=== PATIENT | female | born 1960 | race Caucasian/White ===

== ENCOUNTER 2017-02-04 21:10 | Emergency (ER) | payer BC ==
[~2017-02-04 21:10] MED LIST: APIDRA SOL100 UNIT/1 SQ; CRESTOR40 MG PO; ECOTRIN81 MG PO; EFFIENT10 MG PO; FERROUS SULFAT325 MG PO; ISORDIL TAB 2020 MG PO; JANUVIA100 MG PO; METFORMIN HCL500 MG PO; METOPROLOL TART25 MG PO; NITROSTAT0.4 MG SL; PANTOPRAZOLE SO40 MG PO; PROAIR HFA8.5 GM INH; RANEXA500 MG PO; TROUJEO SC; VESICARE10 MG PO; VITAMIN B-121000 MC3 PO; VITAMIN D50000 UNIT PO
[2017-02-05 01:32] LABS: HEMOGLOBIN 10.4 gm/dl (12.3-15.3); RED BLOOD COUNT 3.85 M/UL (4.00-5.10); WHITE BLOOD COUNT 6.3 K/UL (4.5-11.0)
[2017-02-05 01:56] LABS: BUN/CREATININE RATIO 23 (0-10)
== END 2017-02-05 04:20 | disposition home or self-care (01) ==
LOC: ER1 21:10
PROVIDERS: Family Medicine
DX: R22.43 Localized swelling, mass and lump, lower limb, bilateral (principal); R07.89 Other chest pain; R06.02 Shortness of breath; I25.10 Atherosclerotic heart disease of native coronary artery without angina pectoris; E11.9 Type 2 diabetes mellitus without complications; Z88.8 Allergy status to other drugs, medicaments and biological substances; Z79.82 Long term (current) use of aspirin; Z79.899 Other long term (current) drug therapy; Z79.84 Long term (current) use of oral hypoglycemic drugs
CPT/HCPCS: 36415; 71010; 73630; 80053; 82550; 82553; 83874; 83880; 84484; 85025; 99285

== ENCOUNTER 2021-04-14 09:19 | Emergency (ER) | payer OTHER ==
[~2021-04-14 09:19] MED LIST changes: +ASPIR 8181 MG PO; +COQ10 PO; +CRESTOR20 MG PO; +CRESTOR5 MG PO; +FISH OIL 1,0001 EAC4 PO; +FLONASE 0.05% N16 GM; +GLUCOPHAGE500 MG PO; +HUMALOG SQ; +HUMALOG100 UNIT/3 SQ; +IMDUR ER TAB 6060 MG PO; +ISORDIL TAB 3030 MG PO; +ISOSORBIDE MONO10 MG PO; +LISINOPRIL5 MG PO; +LOPRESSOR 25 MG25 MG PO; +LOPRESSOR50 MG PO; +MACRODANTIN100 MG PO; +OS-CAL 500+D31 EACH PO; +PREDNISONE 50 M50 MG PO; +PROTONIX40 MG PO; +PYRIDIUM200 MG PO; +RANEXA1000 MG PO; +REQUIP0.25 MG PO; +ROPINIROLE HC0.25 MG PO; +SINGULAIR10 MG PO; +TOUJEO MAX300 UNIT/1 SQ; +TOVIAZ4 MG PO; +VENTOLIN HFA 66.7 GM INH; +ZOFRAN 4 MG TAB4 MG PO; +ZOFRAN4 MG PO
[2021-04-14 12:52] LABS: HEMOGLOBIN 12.4 gm/dl (12.3-15.3); RED BLOOD COUNT 4.45 M/UL (4.00-5.10)
[2021-04-14 13:26] LABS: BUN/CREATININE RATIO 19 (0-10)
== END 2021-04-14 15:48 | disposition home or self-care (01) ==
LOC: ER1 09:19
PROVIDERS: Physician Assistant
DX: R07.89 Other chest pain (principal); R06.02 Shortness of breath; R42 Dizziness and giddiness; E11.9 Type 2 diabetes mellitus without complications; E78.5 Hyperlipidemia, unspecified; I11.9 Hypertensive heart disease without heart failure; Z90.49 Acquired absence of other specified parts of digestive tract; Z87.891 Personal history of nicotine dependence; Z88.8 Allergy status to other drugs, medicaments and biological substances; Z95.2 Presence of prosthetic heart valve
CPT/HCPCS: 71045; 80053; 82550; 82553; 83874; 84484; 85025; 93005; 99285

== ENCOUNTER 2021-05-24 13:22 | Emergency (ER) | payer OTHER ==
[2021-05-24 15:13] LABS: HEMOGLOBIN 12.1 gm/dl (12.3-15.3); RED BLOOD COUNT 4.3 M/UL (4.00-5.10); WHITE BLOOD COUNT 6.3 K/UL (4.5-11.0)
[2021-05-24 15:35] LABS: BUN/CREATININE RATIO 18 (0-10)
== END 2021-05-24 16:10 | disposition home or self-care (01) ==
LOC: ER1 13:22
PROVIDERS: Physician Assistant Medical
DX: R22.42 Localized swelling, mass and lump, left lower limb (principal); J44.9 Chronic obstructive pulmonary disease, unspecified; I11.9 Hypertensive heart disease without heart failure; E11.9 Type 2 diabetes mellitus without complications; Z79.4 Long term (current) use of insulin; E78.5 Hyperlipidemia, unspecified; Z95.5 Presence of coronary angioplasty implant and graft; Z90.49 Acquired absence of other specified parts of digestive tract; Z88.8 Allergy status to other drugs, medicaments and biological substances
CPT/HCPCS: 71046; 80053; 85025; 85379; 85610; 85730; 94664; 94760; 99284

== ENCOUNTER 2021-11-28 11:42 | Emergency (ER) | payer OTHER ==
[2021-11-28 13:44] LABS: HEMOGLOBIN 12.9 gm/dl (12.3-15.3); RED BLOOD COUNT 4.63 M/UL (4.00-5.10); WHITE BLOOD COUNT 10.2 K/UL (4.5-11.0)
[2021-11-28 14:08] LABS: BUN/CREATININE RATIO 20 (0-10)
== END 2021-11-28 15:15 | disposition home or self-care (01) ==
LOC: ER1 11:42
PROVIDERS: Physician Assistant
DX: J06.9 Acute upper respiratory infection, unspecified (principal); I11.9 Hypertensive heart disease without heart failure; E11.9 Type 2 diabetes mellitus without complications; E78.5 Hyperlipidemia, unspecified; Z88.8 Allergy status to other drugs, medicaments and biological substances; Z20.822 Contact with and (suspected) exposure to COVID-19
CPT/HCPCS: 71045; 80053; 82550; 82553; 83874; 84484; 85025; 99285; U0002

== ENCOUNTER 2021-12-20 17:22 | Emergency (ER) | payer OTHER ==
[2021-12-20 18:23] LABS: HEMOGLOBIN 13.6 gm/dl (12.3-15.3); RED BLOOD COUNT 4.77 M/UL (4.00-5.10); WHITE BLOOD COUNT 12.7 K/UL (4.5-11.0)
[2021-12-20 18:55] LABS: BUN/CREATININE RATIO 15 (0-10)
[2021-12-20] MEDS ORDERED: ZOFRAN 4 MG TAB4 MG PO (20:09)
[2021-12-20] MEDS ORDERED: OMNICEF 300 MG300 MG PO (20:10)
[2021-12-22] MEDS ORDERED: MECLIZINE HCL25 MG PO (21:49)
== END 2021-12-20 22:00 | disposition home or self-care (01) ==
LOC: ER1 17:22
PROVIDERS: Emergency Medicine
DX: G43.909 Migraine, unspecified, not intractable, without status migrainosus (principal); N39.0 Urinary tract infection, site not specified; R11.2 Nausea with vomiting, unspecified; F17.210 Nicotine dependence, cigarettes, uncomplicated; I25.2 Old myocardial infarction; Z88.8 Allergy status to other drugs, medicaments and biological substances; Z20.822 Contact with and (suspected) exposure to COVID-19
CPT/HCPCS: 0240U; 70450; 71045; 80053; 81001; 82550; 82553; 83874; 84484; 85025; 87040; 93005; 96374; 96375; 99284; J0696; J2405; J2765

== ENCOUNTER 2022-03-11 12:43 | Inpatient (IN) | payer OTHER ==
[~2022-03-11] VITALS: Ht 165.1 cm; Wt 98.9 kg
[~2022-03-11 12:43] MED LIST changes: +ADVAIR 100-501 EACH INH; +ALBUTEROL2.5 MG/3 M INH; +AREDS II PO; +B-121000 MCG PO; +BASAGLAR K100 UNIT/1 SC; -CRESTOR5 MG PO; +DITROPAN 5 MG TA5 MG PO; +DOXYCYCLINE MO100 MG PO; -HUMALOG SQ; -LOPRESSOR50 MG PO; +MECLIZINE HCL25 MG PO; +METFORMIN HCL1000 MG PO; +OMNICEF 300 MG300 MG PO; +PREDNISONE20 MG PO; +PROTONIX 40 MG40 M1 PO; +RANOLAZINE ER1000 MG PO; +TAMIFLU 75 MG C75 MG PO; +TRULICITY0.75 MG/0. SQ
[2022-03-11 13:05] LABS: HEMOGLOBIN 12.4 gm/dl (12.3-15.3); RED BLOOD COUNT 4.38 M/UL (4.00-5.10); WHITE BLOOD COUNT 10.4 K/UL (4.5-11.0)
[2022-03-12 05:35] LABS: HEMOGLOBIN 12.7 gm/dl (12.3-15.3); RED BLOOD COUNT 4.5 M/UL (4.00-5.10)
[2022-03-12 05:58] LABS: BUN/CREATININE RATIO 22 (0-10)
[2022-03-12] MEDS ORDERED: HUMALOG100 UNIT/3 SQ (06:57)
[2022-03-12] MEDS ORDERED: CRESTOR20 MG PO (06:59)
[2022-03-12] MEDS ORDERED: METOPROLOL TARTRATE PO (07:04)
[2022-03-13 05:26] LABS: HEMOGLOBIN 11.4 gm/dl (12.3-15.3); RED BLOOD COUNT 4.09 M/UL (4.00-5.10)
[2022-03-13 05:28] LABS: WHITE BLOOD COUNT 8.7 K/UL (4.5-11.0)
[2022-03-13 05:57] LABS: BUN/CREATININE RATIO 16 (0-10)
[2022-03-13] MEDS ORDERED: PROAIR HFA8.5 GM INH (12:54)
[2022-03-13] MEDS ORDERED: TRULICITY1.5 MG/0.5 SQ (12:55)
[2022-03-14 05:02] LABS: HEMOGLOBIN 11.8 gm/dl (12.3-15.3); RED BLOOD COUNT 4.05 M/UL (4.00-5.10); WHITE BLOOD COUNT 9.3 K/UL (4.5-11.0)
[2022-03-14 05:22] LABS: BUN/CREATININE RATIO 19 (0-10)
[2022-03-15 02:56] LABS: RED BLOOD COUNT 4.33 M/UL (4.00-5.10)
[2022-03-15 02:58] LABS: WHITE BLOOD COUNT 13.4 K/UL (4.5-11.0)
[2022-03-15 03:47] LABS: BUN/CREATININE RATIO 26 (0-10)
[2022-03-15 16:11] LABS: ORGANISM ID Not indicated. (.); SPECIMEN SOURCE Urine (.); STREPTOCOCCUS PNEUMONIAE AG Negative (Negative)
[2022-03-16 03:16] LABS: HEMOGLOBIN 11.7 gm/dl (12.3-15.3); RED BLOOD COUNT 4.16 M/UL (4.00-5.10)
[2022-03-16 03:41] LABS: BUN/CREATININE RATIO 31 (0-10)
[2022-03-17 03:03] LABS: HEMOGLOBIN 11.8 gm/dl (12.3-15.3); RED BLOOD COUNT 4.16 M/UL (4.00-5.10); WHITE BLOOD COUNT 9.8 K/UL (4.5-11.0)
[2022-03-17 04:03] LABS: BUN/CREATININE RATIO 33 (0-10)
[2022-03-17] MEDS ORDERED: HUMIBID LA TAB600 MG PO (11:22)
[2022-03-17] MEDS ORDERED: HYDROCODON-ACE1 EAC4 PO (11:22)
[2022-03-17] MEDS ORDERED: IPRAT-ALBUT 0.5-3 ML NEB (11:22)
[2022-03-17] MEDS ORDERED: LOPRESSOR 25 MG25 MG PO (11:22)
[2022-03-17] MEDS ORDERED: BASAGLAR K100 UNIT/1 SC (11:24)
--- NOTE | 2022-03-17 13:14 | NUR ---
ROOM AIR SAT 86%.
== END 2022-03-17 18:15 | disposition home or self-care (01) | DRG 871 ==
LOC: ER1 12:43 → MED SURG 4 17:12 → CDU 17:12 → CCU 18:04 → MED SURG 4 03-14 18:36
PROVIDERS: Internal Medicine; Internal Medicine Critical Care Medicine; Physician Assistant; Student in an Organized Health Care Education/Training Program; ADMIT Internal Medicine
PROC: 5A12012 Performance of Cardiac Output, Single, Manual (ICD-10-PCS; principal; 2022-03-11)
PROC: 3E043XZ Introduction of Vasopressor into Central Vein, Percutaneous Approach (ICD-10-PCS; 2022-03-11)
PROC: 0BH17EZ Insertion of Endotracheal Airway into Trachea, Via Natural or Artificial Opening (ICD-10-PCS; 2022-03-11)
PROC: 5A1945Z Respiratory Ventilation, 24-96 Consecutive Hours (ICD-10-PCS; 2022-03-11)
PROC: 3E03329 Introduction of Other Anti-infective into Peripheral Vein, Percutaneous Approach (ICD-10-PCS; 2022-03-11)
PROC: B24BZZZ Ultrasonography of Heart with Aorta (ICD-10-PCS; 2022-03-12)
PROC: 0DH67UZ Insertion of Feeding Device into Stomach, Via Natural or Artificial Opening (ICD-10-PCS; 2022-03-13)
PROC: 5A0945A Assistance with Respiratory Ventilation, 24-96 Consecutive Hours, High Flow/Velocity Cannula (ICD-10-PCS; 2022-03-14)
DX: A41.9 Sepsis, unspecified organism (principal); R65.21 Severe sepsis with septic shock; I46.8 Cardiac arrest due to other underlying condition; Z20.822 Contact with and (suspected) exposure to COVID-19; J96.01 Acute respiratory failure with hypoxia; R57.0 Cardiogenic shock; J69.0 Pneumonitis due to inhalation of food and vomit; R00.0 Tachycardia, unspecified; T42.75XA Adverse effect of unspecified antiepileptic and sedative-hypnotic drugs, initial encounter; G47.33 Obstructive sleep apnea (adult) (pediatric); I10 Essential (primary) hypertension; R13.10 Dysphagia, unspecified; R53.81 Other malaise; E66.01 Morbid (severe) obesity due to excess calories; E83.42 Hypomagnesemia; E11.65 Type 2 diabetes mellitus with hyperglycemia; G25.81 Restless legs syndrome; L89.151 Pressure ulcer of sacral region, stage 1; L89.156 Pressure-induced deep tissue damage of sacral region; I08.1 Rheumatic disorders of both mitral and tricuspid valves; E78.5 Hyperlipidemia, unspecified; I25.10 Atherosclerotic heart disease of native coronary artery without angina pectoris; Z95.5 Presence of coronary angioplasty implant and graft; Z79.01 Long term (current) use of anticoagulants; Z79.82 Long term (current) use of aspirin; Z90.49 Acquired absence of other specified parts of digestive tract; Z98.891 History of uterine scar from previous surgery; Z88.8 Allergy status to other drugs, medicaments and biological substances; Z87.891 Personal history of nicotine dependence; Z79.4 Long term (current) use of insulin; Z82.0 Family history of epilepsy and other diseases of the nervous system; Z82.49 Family history of ischemic heart disease and other diseases of the circulatory system; Z68.36 Body mass index [BMI] 36.0-36.9, adult; I95.9 Hypotension, unspecified
CPT/HCPCS: ECHO; 31500; 36415; 36600; 70450; 71045; 80048; 80053; 80202; 80307; 81001; 82533; 82550; 82553; 82803; 82962; 83036; 83605; 83735; 83880; 84439; 84443; 84484; 85025; 85027; 85379; 85610; 85730; 87040; 87070; 87081; 87205; 87278; 87899; 92526; 92610; 93005; 93270; 93306; 94002; 94003; 94640; 94668; 94760; 97110; 97110-GP-CQ; 97116-GP-CQ; 97161; 97530; 97530-GP-CQ; 99285; C9113; J0171; J0461; J0692; J1644; J2270; J2704; J3370; J3475; J7030; J7070; Q9967; U0002

== ENCOUNTER → 2022-04-01 | Outpatient (CLI) | payer OTHER ==
[~2022-04-01] MED LIST changes: +HUMIBID LA TAB600 MG PO; +HYDROCODON-ACE1 EAC4 PO; +IPRAT-ALBUT 0.5-3 ML NEB; +METOPROLOL TARTRATE PO; +TRULICITY1.5 MG/0.5 SQ
== END ==
LOC: HEART 5 08:45
DX: I20.9 Angina pectoris, unspecified (principal)
CPT/HCPCS: 78452; A9502; J2785

== ENCOUNTER 2022-04-08 11:12 | Observation (INO) | payer OTHER ==
[~2022-04-08] VITALS: Ht 160 cm; Wt 102.1 kg
[~2022-04-08 11:12] MED LIST changes: +ERYTHROMYCIN OP1 GM OP; +FISH OIL 1,0001 EAC1 PO; -FISH OIL 1,0001 EAC4 PO
[2022-04-08 11:47] LABS: HEMOGLOBIN 12.2 gm/dl (12.3-15.3); RED BLOOD COUNT 4.37 M/UL (4.00-5.10); WHITE BLOOD COUNT 7.1 K/UL (4.5-11.0)
[2022-04-08 12:13] LABS: BUN/CREATININE RATIO 30 (0-10)
[2022-04-08] MEDS ORDERED: ALBUTEROL2.5 MG/3 M INH (16:38)
[2022-04-08] MEDS ORDERED: TYLENOL EXTRA500 MG PO (16:40)
[2022-04-09 01:57] LABS: HEMOGLOBIN 11.7 gm/dl (12.3-15.3); RED BLOOD COUNT 4.18 M/UL (4.00-5.10); WHITE BLOOD COUNT 5.5 K/UL (4.5-11.0)
[2022-04-09 02:19] LABS: BUN/CREATININE RATIO 22 (0-10)
[2022-04-10 02:57] LABS: HEMOGLOBIN 11.4 gm/dl (12.3-15.3); RED BLOOD COUNT 4.17 M/UL (4.00-5.10); WHITE BLOOD COUNT 5.1 K/UL (4.5-11.0)
[2022-04-10 03:46] LABS: BUN/CREATININE RATIO 15 (0-10)
== END 2022-04-10 10:54 | disposition home or self-care (01) ==
LOC: ER1 11:12 → MED SURG 4 12:38 → CDU 12:38 → MED SURG 4 17:01 → PROG CARE 04-09 11:24
PROVIDERS: Physician Assistant; Physician Assistant Medical; ADMIT Internal Medicine
PROC: 027034Z Dilation of Coronary Artery, One Artery with Drug-eluting Intraluminal Device, Percutaneous Approach (ICD-10-PCS; principal; 2022-04-09)
PROC: 4A023N7 Measurement of Cardiac Sampling and Pressure, Left Heart, Percutaneous Approach (ICD-10-PCS; 2022-04-09)
PROC: B2111ZZ Fluoroscopy of Multiple Coronary Arteries using Low Osmolar Contrast (ICD-10-PCS; 2022-04-09)
DX: R07.89 Other chest pain (principal); I10 Essential (primary) hypertension; I25.10 Atherosclerotic heart disease of native coronary artery without angina pectoris; E78.5 Hyperlipidemia, unspecified; I65.22 Occlusion and stenosis of left carotid artery; I25.2 Old myocardial infarction; E11.9 Type 2 diabetes mellitus without complications; G47.33 Obstructive sleep apnea (adult) (pediatric); D64.9 Anemia, unspecified; H10.9 Unspecified conjunctivitis; G25.81 Restless legs syndrome; J44.9 Chronic obstructive pulmonary disease, unspecified; E66.9 Obesity, unspecified; Z68.39 Body mass index [BMI] 39.0-39.9, adult; Z86.74 Personal history of sudden cardiac arrest; Z87.09 Personal history of other diseases of the respiratory system; Z95.5 Presence of coronary angioplasty implant and graft; Z95.1 Presence of aortocoronary bypass graft; Z88.8 Allergy status to other drugs, medicaments and biological substances; Z79.4 Long term (current) use of insulin; Z79.84 Long term (current) use of oral hypoglycemic drugs; Z79.82 Long term (current) use of aspirin; Z79.899 Other long term (current) drug therapy; Z87.891 Personal history of nicotine dependence; Z90.49 Acquired absence of other specified parts of digestive tract
CPT/HCPCS: 36415; 71045; 80048; 80053; 82550; 82553; 82962; 83735; 84484; 85025; 85027; 85610; 85730; 93005; 93571; 93572; 94760; 99152; 99153; 99285; C1725; C1769; C1874; C1887; C9600; G0378; J0583; J1644; J2250; J3010; J3475; J7030; Q9967

== ENCOUNTER → 2022-06-24 | Outpatient (CLI) | payer OTHER ==
[~2022-06-24] MED LIST changes: +TYLENOL EXTRA500 MG PO
== END ==
LOC: SLEEP 11:25
DX: G47.33 Obstructive sleep apnea (adult) (pediatric) (principal); G47.61 Periodic limb movement disorder
CPT/HCPCS: 95810